=== PATIENT | male | born 1940 | race Caucasian/White ===

== ENCOUNTER 2018-11-16 19:33 | Inpatient (IN) | payer MEDICARE ==
[~2018-11-16] VITALS: Ht 180.3 cm; Wt 85.0 kg
--- NOTE | 2018-11-16 20:04 | NUR ---
B[place] [facility] [place] RIGHT SIDE FAICAL WEAKNESS STARTING WHILE PT. WAS HAVING A LEFT SIDE DENTAL ABSCESS DRAINED AT [facility] TODAY. NO OTHER NEURO SYMPTOMS WERE NOTED. PT. 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 PT. IS A&O X 3 ON ARRIVAL. SLIGHTLY WEAKER ON THE LEFT UPPER/LOWER EXTREMITIES. EKG WAS COMPLETED ON ARIVAL AND CONTINUOUS PULSE OX, BP, AND HEART MONITORS PLACED. PT. ASSITED TO TAKE PANTS OFF AND VOID VIA URINAL. PT. WAS ABLE TO MOVE ALL EXTREMITIES AND MOVE SELF UP IN BED TO REPOSITION FOR COMFORT. BLANKETS PROVIDED. ES PIERCE AND DR. PHELAN HAVE BOTH BEEN IN TO EVAL PT. AND DISCUSS POC. 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 HX: LEUKEMIA, BIPOLAR, HYPOTHYROID.
[2018-11-16 20:34] LABS: ALANINE AMINOTRANSFERASE 12 U/L (12-78); ALBUMIN 3.1 g/dL (3.4-5.0); ANION GAP 8 mmol/L (5-15); CHLORIDE 116 mmol/L (98-107); CREATININE 1.31 mg/dL (0.7-1.3)
[2018-11-16 20:36] LABS: ALKALINE PHOSPHATASE 84 U/L (45-117); BILIRUBIN,TOTAL 1.1 mg/dL (0.2-1.0); TOTAL PROTEIN 6.9 g/dL (6.4-8.2)
--- NOTE | 2018-11-16 20:50 | NUR ---
PT. ASSISTED TO VOID VIA URINAL AND USED CALL LIGHT APPROPRIATELY TO REQUEST ASSISTANCE WITH THIS. VS UPDATED. PT. AGAIN MOAVED SELF UP ON GURNEY TO POSITION FOR COMFORT. NADN. DENIES NEEDS. CALL LIGHT IN REACH.
--- NOTE | 2018-11-16 21:05 | NUR ---
DAUGHTER ARRIVED TO BS AT THIS TIME. PT. HAD FALLEN ASLEEP AND O2 SAT DROPPED TO 75% WITH THIS; 6L OXY MASK PLACED AND O2 IMMEDIATLY UP TO 97%. PT./DAUGHTER DENY NEEDS AT THIS TIME. WILL CONTINUE TO MONITOR.
[2018-11-16 21:22] LABS: BASOPHILS # (AUTO) 0.03 x10^3/uL (0-0.1); BASOPHILS % (AUTO) 1 % (0-1); EOSINOPHILS # (AUTO) 0.03 x10^3/uL (0-0.4); EOSINOPHILS % (AUTO) 1 % (1-7); LYMPHOCYTES # (AUTO) 1.63 x10^3/uL (1-3.4); LYMPHOCYTES % (AUTO) 31 % (22-44); MD SCAN; MEAN CORPUSCULAR HEMOGLOBIN 24.8 pg (27.5-34.5); MEAN CORPUSCULAR HGB CONC 30.6 g/dL (33.2-36.2); MEAN CORPUSCULAR VOLUME 81.2 fL (81-97); MEAN PLATELET VOLUME 9.4 fL (7.4-10.4); MONOCYTES # (AUTO) 0.35 x10^3/uL (0.2-0.8); MONOCYTES % (AUTO) 7 % (2-9); NEUTROPHILS # (AUTO) 3.23 x10^3/uL (1.8-6.8); NEUTROPHILS % (AUTO) 61 % (42-75); PLATELET COUNT 93 x10^3/uL (130-400); RED BLOOD COUNT 3.94 x10^6/uL (4.38-5.82); RED CELL DISTRIBUTION WIDTH 18.1 % (9.4-14.8)
--- NOTE | 2018-11-16 21:35 | NUR ---
ES PIERCE IN TO DISCUSS POC WITH PT. AND FAMILY. PT. CALLED APPROPRIATLY TO ASK FOR ASSISTANCE WITH URINAL. VS UPDATED. PT. REQUESTIG WATER; WILL DISUCSS WITH ERP.
--- NOTE | 2018-11-16 21:36 | NUR ---
PER ERP NO WATER UNTIL NEUROSURG CONSULT DONE.
[2018-11-16] MEDS ORDERED: RANI150T4 PO (21:41)
[2018-11-16] MEDS ORDERED: THIA100T67 PO (21:41)
[2018-11-16] MEDS ORDERED: RISP0.5T3 PO (21:41)
[2018-11-16] MEDS ORDERED: LEVO100T PO (21:41)
--- NOTE | 2018-11-16 21:57 | NUR ---
PT. REQUESTING WATER AGAIN; UPDATED THAT NO WATER CAN BE PROVIDED WITHOUT OK FROM ERP. PT. VERBALIZED UNDERSTANDING; PROVIDED WITH MOUTH SWABS. PT. IS A&O X 4 NOW; EARLIER PT. HAD STATED THE YEAR WAS 2008, NOW KNOWS YEAR IS 2018. PT. BOOSTED ON GURNEY AND REPOSITIONED FOR COMFORT. NADN. CALL LIGHT IN REACH. ALL SAFETY MEASURES MAINTAINED.
--- NOTE | 2018-11-16 22:32 | NUR ---
PER DR. ZHANE TEJADA FOR PT. TO HAVE WATER NOW. PT. IS RESTING ON GURMixpo WITH EYES CLOSED. NADN. DAUGHTER REMAINS AT BS FOR SUPPORT. 2L O2 VIA NC TO MAINTAIN O2 AT 96% WHILE SLEEPING. HR REMAINS 75NSR ON MONITOR. ALL SAFTEY MEASURES MAINTAINED. CALL LIGHT IN REACH.
--- NOTE | 2018-11-16 22:38 | NUR ---
REPORT TO JR DAMON. FLOOR READY FOR PT. TRANSPORT.
--- NOTE | 2018-11-16 22:45 | NUR ---
PATRICE AT NOW TO EVAL PT. FOR ADMISSION.
[2018-11-16] MEDS: CLINDAMYCIN PMX 600MG/50ML 50 ML IV SCH (23:54)
[2018-11-16] MEDS: SODIUM CHLORIDE 0.9% 1,000 ML IV SCH (23:54)
[2018-11-17 00:04] VITALS: BP 131/80
[2018-11-17] MEDS: ORAJEL 7GM TUBE MM PRN ×3 (01:17→21:27)
[2018-11-17 02:52] VITALS: BP 122/75
[2018-11-17 05:21] LABS: MEAN CORPUSCULAR HEMOGLOBIN 24.9 pg (27.5-34.5); MEAN CORPUSCULAR HGB CONC 30.4 g/dL (33.2-36.2); MEAN CORPUSCULAR VOLUME 81.8 fL (81-97); MEAN PLATELET VOLUME 9.7 fL (7.4-10.4); PLATELET COUNT 85 x10^3/uL (130-400); RED BLOOD COUNT 3.57 x10^6/uL (4.38-5.82); RED CELL DISTRIBUTION WIDTH 17.5 % (9.4-14.8)
[2018-11-17 05:29] LABS: ANION GAP 8 mmol/L (5-15); CALCIUM 7.7 mg/dL (8.5-10.1); CHLORIDE 115 mmol/L (98-107)
[2018-11-17 05:31] LABS: CREATININE 1.19 mg/dL (0.7-1.3)
[2018-11-17] MEDS: LEVOTHYROXINE 100 MCG TABLET PO SCH ×2 (05:40→10:30)
[2018-11-17 05:58] LABS: BASOPHILS # (AUTO) 0.02 x10^3/uL (0-0.1); BASOPHILS % (AUTO) 1 % (0-1); EOSINOPHILS % (AUTO) 0 % (1-7); LYMPHOCYTES % (AUTO) 40 % (22-44); MD SCAN; MONOCYTES # (AUTO) 0.22 x10^3/uL (0.2-0.8); MONOCYTES % (AUTO) 5 % (2-9); NEUTROPHILS # (AUTO) 2.43 x10^3/uL (1.8-6.8); NEUTROPHILS % (AUTO) 54 % (42-75)
[2018-11-17] MEDS: CLINDAMYCIN PMX 600MG/50ML 50 ML IV SCH ×3 (07:41→23:09)
[2018-11-17 07:44] VITALS: BP 132/80
[2018-11-17] MEDS ORDERED: ACETAMINOPHEN 325 MG TABLET PO PRN (10:30)
[2018-11-17] MEDS: SODIUM CHLORIDE 0.9% 1,000 ML IV SCH ×2 (12:16→23:10)
[2018-11-17 13:37] VITALS: BP 116/64
[2018-11-17 14:00] VITALS: BP 114/71
[2018-11-17 20:07] VITALS: BP 112/76
[2018-11-17] MEDS: RISPERIDONE 0.5 MG TABLET PO SCH (21:01)
[2018-11-18 00:35] VITALS: BP 135/79
[2018-11-18 06:33] VITALS: BP 127/74
[2018-11-18] MEDS: CLINDAMYCIN PMX 600MG/50ML 50 ML IV SCH ×3 (07:49→23:08)
[2018-11-18] MEDS: DEXAMETHASONE 4 MG/ML, 1ML IVPush SCH ×3 (08:37→20:13)
[2018-11-18] MEDS ORDERED: POLYETHYLENE GLYCOL 17 GM PACKET PO PRN (11:30)
[2018-11-18] MEDS: LACTOBACILLUS 1GM/ PACKET PO SCH ×3 (12:00→20:13)
[2018-11-18 13:48] VITALS: BP 127/77
[2018-11-18] MEDS: SODIUM CHLORIDE 0.9% 1,000 ML IV SCH (14:56)
[2018-11-18] MEDS ORDERED: BISACODYL 10 MG SUPP PR PRN (17:30)
[2018-11-18 19:43] VITALS: BP 115/63
[2018-11-18] MEDS: FAMOTIDINE 20 MG TABLET PO SCH (20:13)
[2018-11-18] MEDS: RISPERIDONE 0.5 MG TABLET PO SCH (20:14)
[2018-11-19 00:15] VITALS: BP 120/67
[2018-11-19] MEDS: DEXAMETHASONE 4 MG/ML, 1ML IVPush SCH ×4 (02:08→20:53)
[2018-11-19] MEDS: LEVOTHYROXINE 100 MCG TABLET PO SCH (05:55)
[2018-11-19] MEDS: SODIUM CHLORIDE 0.9% 1,000 ML IV SCH ×2 (05:55→20:54)
[2018-11-19 07:30] VITALS: BP 130/69
[2018-11-19] MEDS: CLINDAMYCIN PMX 600MG/50ML 50 ML IV SCH ×2 (08:11→15:49)
[2018-11-19] MEDS: LACTOBACILLUS 1GM/ PACKET PO SCH ×3 (08:12→20:54)
[2018-11-19 13:20] VITALS: BP 115/68
[2018-11-19 19:57] VITALS: BP 116/65
[2018-11-19] MEDS: CLINDAMYCIN 300 MG CAPSULE PO SCH (20:53)
[2018-11-19] MEDS: RISPERIDONE 0.5 MG TABLET PO SCH (20:54)
[2018-11-19] MEDS: FAMOTIDINE 20 MG TABLET PO SCH (20:54)
[2018-11-20 01:04] VITALS: BP 160/81
[2018-11-20] MEDS: DEXAMETHASONE 4 MG/ML, 1ML IVPush SCH ×3 (02:10→15:32)
[2018-11-20] MEDS: LEVOTHYROXINE 100 MCG TABLET PO SCH (05:41)
[2018-11-20] MEDS: SODIUM CHLORIDE 0.9% 1,000 ML IV SCH (05:42)
[2018-11-20 08:45] VITALS: BP 138/72
[2018-11-20] MEDS: CLINDAMYCIN 300 MG CAPSULE PO SCH (08:50)
[2018-11-20] MEDS: LACTOBACILLUS 1GM/ PACKET PO SCH (08:51)
[2018-11-20] MEDS ORDERED: DEXA4TAB66 PO ×4 (15:00→15:52)
[2018-11-20] MEDS ORDERED: POLY17PO5 PO (15:00)
[2018-11-20] MEDS ORDERED: TRAM50TA2 PO (15:00)
[2018-11-20] MEDS ORDERED: CLIN300C8 PO (15:00)
[2018-11-20] MEDS ORDERED: FAMO20TA7 PO (15:00)
[2018-11-20] MEDS ORDERED: ACID1GRA3 PO (15:00)
[2018-11-20 15:27] VITALS: BP 122/69
== END 2018-11-20 16:52 | disposition home health service (06) | DRG 65 ==
LOC: ED 22:34 → EDIP 22:40 → 4WST 23:14
PROVIDERS: ADMIT Internal Medicine; ATTEND Internal Medicine
DX: I62.03 Nontraumatic chronic subdural hemorrhage (principal); C95.90 Leukemia, unspecified not having achieved remission; K04.7 Periapical abscess without sinus; R40.2410 Glasgow coma scale score 13-15, unspecified time; E03.9 Hypothyroidism, unspecified; F31.9 Bipolar disorder, unspecified; M27.2 Inflammatory conditions of jaws; Z79.890 Hormone replacement therapy; Z92.21 Personal history of antineoplastic chemotherapy
CPT/HCPCS: 36415; 70450; 80048; 80053; 83605; 85025; 87040; 93005; 99285; G0378; J1100; J7030